=== PATIENT | female | born 1955 | race Caucasian/White ===

== ENCOUNTER 2024-06-05 15:54 | Outpatient (OUT) | payer MEDICARE, SELFPAY ==
--- NOTE | 2024-06-05 16:03 | XR_ITS ---
The [address] [address] Patient Name: PATRICK LONGO MRN: [id number] date: 1955 Sex: F Assigned Patient Location: [facility] Current Patient Location: Accession/Order Number: [id number] Exam Date: 06/05/2024 16:05 Report Date: 06/07/2024 11:51 At the request of: ANURADHA ALEJANDRO Procedure: XR foot RT min 3V PROCEDURE: XR foot RT min 3V COMPARISON: None. HISTORY: Right Foot Pain FINDINGS: BONES:No acute fracture or dislocation. Moderate enthesopathic spurring plantar calcaneus. Corticated bone fragment lateral to the cuboid likely remote injury. Degenerative changes with joint space narrowing marginal osteophyte formation most significant first tarsometatarsal joint SOFT TISSUES:Negative. No visible soft tissue swelling. EFFUSION:None visible. OTHER: Negative. XR/XR foot RT min 3V IMPRESSION: Degenerative changes. Electronically authenticated by: LEORA SOLIS Date: 06/07/2024 11:51
== END 2024-06-05 15:55 | disposition home or self-care (01) ==
PROVIDERS: PCP Family Medicine; Visit Provider Family Medicine
DX: M79.671 Pain in right foot (principal)
CPT/HCPCS: 73630